=== PATIENT | male | born 1940 | race Caucasian/White ===

== ENCOUNTER → 2024-05-31 | Outpatient (CLI) | payer MEDICARE, SELFPAY ==
--- NOTE | 2024-05-31 13:00 | XR_ITS ---
Examination: Prostate sonography TECHNIQUE: Limited transabdominal sonographic images prostate INDICATIONS: Frequent urination, unable to empty the urinary bladder years Exam date and time: May 31, 2024 1311 hours FINDINGS: Prostate volume 59 cc, no prostate nodules Small calcifications prostate noted IMPRESSION: Significant prostatomegaly
== END | disposition home or self-care (01) ==
PROVIDERS: PCP Physician Assistant; Referring Provider Physician Assistant; Visit Provider Physician Assistant
DX: N40.0 Benign prostatic hyperplasia without lower urinary tract symptoms (principal)
CPT/HCPCS: 76872